=== PATIENT | male | born 1935 | race Caucasian/White ===

== ENCOUNTER 2020-04-20 17:01 | Inpatient (IN) | payer MEDICARE, OTHER ==
[2020-04-20] MEDS ORDERED: ALOE VERA TOP PRN (21:11)
[2020-04-20] MEDS ORDERED: Polyethylene Glycol OPTH DROP 15 ML BOT EA EYE PRN (21:13)
[2020-04-20] MEDS ORDERED: TYLENOL PO PRN (21:18)
[2020-04-20] MEDS: Melatonin 3 MG TAB PO PRN (21:32)
[2020-04-20] MEDS: Tamsulosin HCl 0.4 MG CAP PO SCH (21:32)
[2020-04-20] MEDS: Benzonatate 100 MG CAP PO PRN (21:32)
[2020-04-20] MEDS: Latanoprost 0.005% Ophth Soln 2.5 ml Bottle EA EYE SCH (21:33)
[2020-04-20] MEDS: guaiFENesin ER 600 MG TAB PO SCH (21:33)
[2020-04-20] MEDS: Metoprolol Tartrate 25 MG TAB PO SCH (21:33)
[2020-04-20] MEDS: Gabapentin 300 MG CAP PO SCH (21:33)
[2020-04-20] MEDS: Nystatin 500,000 UNITS/5 ML UDCUP SSW SCH (21:33)
[2020-04-20] MEDS: Niacin SR 500 MG CAP PO SCH (21:33)
[2020-04-21] MEDS ORDERED: Acetaminophen 325 MG TAB PO PRN (02:23)
[2020-04-21 05:41] LABS: #Lymphocytes 1.9 thou/uL (1.20-3.40); #Monocytes 0.8 thou/uL (0.11-0.59); #Neutrophils 10.6 thou/uL (1.40-6.50); %Basophils 0.3 % (0.0-1.0); %Eosinophils 0.2 % (0.0-10.0); %Monocytes 6.1 % (0.0-10.0); %Neutrophils 79.4 % (42.0-75.0); Mean Corpuscular HGB CONC 32.2 g/dL (32.0-36.0); Mean Corpuscular Hemoglobin 29.6 pg (27.0-31.0); Mean Corpuscular Volume 91.8 fL (78.0-98.0); Platelet Count 273 thou/uL (130-400); RBC Distribution Width 11.7 % (11.5-14.5); Red Blood Cell (RBC) Count 4.41 mill/uL (4.70-6.10); White Blood Cell (WBC) Count 13.4 thou/uL (4.8-10.8)
[2020-04-21 05:59] LABS: ALT (SGPT) 75 U/L (8-55); AST (SGOT) 39 U/L (5-34); Alkaline Phosphatase 67 U/L (40-110); Anion Gap 17 mmol/L (10-20); BUN (Urea Nitrogen) 25 mg/dL (8.4-25.7); Bilirubin, Total 0.7 mg/dL (0.2-1.2); Calc. Creatinine Clearance 60 mL/min (70-130); Calcium 8.8 mg/dL (7.8-10.44); Carbon Dioxide 22 mmol/L (23-31); Chloride 103 mmol/L (98-107); Estimated GFR-MDRD 64; Globulin 3.1 g/dL (2.4-3.5); Glucose 109 mg/dL (83-110); Potassium 4.6 mmol/L (3.5-5.1); Protein, Total 6.1 g/dL (5.8-8.1); Sodium 137 mmol/L (136-145)
[2020-04-21] MEDS ORDERED: Potassium Chloride 20 MEQ TAB PO SCH (09:00)
[2020-04-21] MEDS: Finasteride 5 MG TAB PO SCH (09:02)
[2020-04-21] MEDS: Calcium Carbonate 600 MG + Vit D TAB PO SCH (09:02)
[2020-04-21] MEDS: Atorvastatin Calcium 40 MG TAB PO SCH (09:02)
[2020-04-21] MEDS: Amoxicillin/Potassium Clav 875 MG TAB PO SCH ×2 (09:02→20:27)
[2020-04-21] MEDS: Metoprolol Tartrate 25 MG TAB PO SCH ×2 (09:02→20:26)
[2020-04-21] MEDS: Enoxaparin Sodium 40 MG/0.4 ML SYRINGE SC SCH (09:03)
[2020-04-21] MEDS: Fish Oil 1,000 MG CAP PO SCH (09:03)
[2020-04-21] MEDS: predniSONE 20 MG TAB PO SCH (09:03)
[2020-04-21] MEDS: Nystatin 500,000 UNITS/5 ML UDCUP SSW SCH ×4 (09:03→20:26)
[2020-04-21] MEDS: guaiFENesin ER 600 MG TAB PO SCH ×2 (09:03→20:26)
[2020-04-21] MEDS: Floranex Packet PO SCH (09:03)
[2020-04-21] MEDS: Furosemide 20 MG TAB PO SCH (09:03)
[2020-04-21] MEDS: Aspirin Chewable 81 MG TAB PO SCH (09:03)
[2020-04-21] MEDS: GARLIC PO SCH (09:04)
[2020-04-21] MEDS: OSTEO BI FLEX PO SCH (09:05)
[2020-04-21] MEDS: [UNRECOGNIZED DRUG - OTHER] PO SCH (09:05)
--- NOTE | 2020-04-21 18:02 | HP ---
He admitted to [facility] on the evening of 04/20/2020. CHIEF COMPLAINT: Weakness following hospitalization for aspiration pneumonia. HISTORY OF PRESENT ILLNESS: The patient is an 84-year-old white male, who has a history of hypertension, coronary artery disease, hypertrophic obstructive cardiomyopathy, and syncope with sinus pause, for which he has undergone an ICD placement. He also has a history of chronic low back pain from spinal stenosis and failed surgical back syndrome. The patient is a . He lives by himself and is independent of all his ADLs and instrumental ADLs. The patient was hospitalized at [facility] in [place] from 04/02/2020 until 04/20/2020. He had entered the hospital for placement of a nerve stimulator in his low back to help control his chronic pain. While there, he vomited in his O2 mask and aspirated and developed respiratory failure. He had developed an aspiration pneumonia and that gradually improved. He has required supplemental O2, antibiotics, and recently with the addition of antibiotics, neb treatments, and chest percussion. He has done much better. He has been able to maintain his good O2 saturation with just 3 L of oxygen by nasal cannula. He has felt better and has been up walking some. The patient entered the hospital late on the evening of 04/20 and was seen early on the morning of 04/21. The patient was able to relay the history of why he went to the hospital and what has happened to him. He said he is feeling better, just still weak and not back to his baseline, still has a little productive cough. He has been able to walk some. PAST MEDICAL HISTORY: Hospitalized at [facility] from 04/02/2020 to 04/20/2020 for placement of a nerve stimulator in his low back, but procedure could not be done due to an aspiration requiring hospitalization for aspiration pneumonia with hypoxic respiratory failure. The patient has coronary artery disease. He sees Dr. Whitehead, music researcher. He has had stents. He has had rotational atherotomy and 2 stents in proximal LAD. He has hypertrophic obstructive cardiomyopathy. He has had sinus pause with syncope. He has an automatic implantable defibrillator. He has GERD that is controlled, hyperlipidemia, hypertension. The patient has spinal stenosis. He has a multiple laminectomies and has a post laminectomy syndrome, atrial fibrillation and aspiration pneumonia with sepsis. The patient has had cataract extractions and intraocular lens implants, bilateral carpal tunnel release, cholecystectomy, ERCP with sphincterotomy, hemorrhoid surgery, previous placement of nerve stimulator, right total knee replacement, lumbar laminectomy at L4-L5, tonsillectomy, right total hip arthroplasty, vasectomy. PRESENT MEDICINES: 1. Acetaminophen 650 mg every 6 hours. 2. Acidophilus 1 gram daily. 3. Albuterol (DuoNeb) every 6 hours as needed. 4. Aloe vera topical oil, apply as needed. 5. Augmentin 875 mg for a total of 10 days. 6. Aspirin 81 mg daily. 7. Atorvastatin 40 mg daily. 8. Tessalon 200 mg t.i.d. as needed. 9. Caltrate D 600 mg 200 mg one daily. 10. Lovenox 40 mg daily. 11. Proscar 5 mg daily. 12. Fish oil 1000 mg daily. 13. Furosemide 20 mg daily. 14. Gabapentin 600 mg at bedtime. 15. Garlic one daily. 16. Mucinex 600 mg b.i.d. 17. Icaps one daily. 18. Xalatan 0.005% one drop in the eyes at bedtime. 19. Melatonin 6 mg at bedtime as needed. 20. Metoprolol tartrate 25 mg b.i.d. 21. Niacin 500 mg at bedtime. 22. Nystatin 500 mg to swish and swallow q.i.d. 23. Osteo Bi-Flex one daily. 24. Pantoprazole 40 mg daily. 25. Potassium chloride 20 mEq daily. 26. Prednisone 20 mg daily. 27. Systane ophthalmic drops one drop in the eyes p.r.n. for dryness. 28. Tamsulosin 0.4 mg at bedtime. 29. Tramadol 50 mg every 8 hours as needed. ALLERGIES: NO KNOWN ALLERGIES. REVIEW OF SYSTEMS: GENERAL: The patient said he does not think he has had any fever. He thinks his weight has been stable. HEENT: Eyes; the patient said his vision is good. Ear, nose, and throat; I thinks his ears may be stopped up with wax. CARDIOVASCULAR: No chest pain. PULMONARY: The patient said he is breathing a lot better. He still has a little productive cough, but this is improving. GI: Appetite good. No nausea or vomiting. Bowels are moving good. : No trouble urinating. MUSCULOSKELETAL: The patient has chronic low back pain. DERMATOLOGIC: No complaint. NEUROLOGIC: No complaint. ADLs: Prior to hospitalization, the patient was independent of all his ADLs and instrumental ADLs. HABITS: Tobacco, none. Alcohol, the patient will occasionally have a drink. SOCIAL HISTORY: The patient is a , lives alone, independent. Continues to drive. CODE STATUS: Full code. PHYSICAL EXAMINATION: GENERAL: Shows an 84-year-old white male, who is sitting up in a [place] chair. He is alert, talkative and appears in no acute distress. He has occasional little productive of some clear mucus. VITAL SIGNS: His vital signs show temperature 98.2, pulse 70, respirations 20, O2 saturation 95% on 3 L by nasal cannula, and blood pressure 142/81. His weight is 189. His height is 5 feet 10 inches. HEENT: Normocephalic. Eyes; pupils are equal, round, and reactive. Bilateral intraocular implants. Ears, both ears have cerumen obscuring the TM. Nose; normal. Mouth and throat; normal. Tongue was a little reddish. NECK: Carotids are equal and strong. No bruits. LUNGS: The patient has some good breath sounds with some mild rhonchi on expiration. There is some just very minimal wheeze at the posterior bases. HEART: The patient has a regular rate with a grade 3/6 blowing systolic murmur heard best at the apex, but also along the left sternal border. CHEST: The patient has an ICD located in the right upper anterior chest. ABDOMEN: Soft with no organomegaly. No areas of tenderness. SKIN: No rash. EXTREMITIES: Lower extremities, there is trace edema. NEUROLOGIC: The patient is alert and oriented x3, and understands the situation. In taking his history he did have a little trouble remembering all his health issues and previous surgeries. The patient has some generalized weakness that is nonfocal. IMPRESSION: 1. Generalized weakness and deconditioning. a. Following a hospitalization at [facility] from 04/02 to 04/20 for aspiration pneumonia complicated by hypoxic respiratory failure and episode of atrial fibrillation that was new onset with the rates controlled and managed with Lopressor and aspirin. b. Improving. 2. Aspiration pneumonia. a. Occurred when he was being prepared for a nerve stimulator in his low back and resulted in vomiting and aspiration. b. Complicated by hypoxic respiratory failure, requiring supplemental O2. c. Improving, finishing a 10-day course of Augmentin. 3. New onset atrial fibrillation. a. Rate controlled with regular rate, on aspirin. No anticoagulation. 4. Hypertension. 5. Coronary artery disease. a. Status post stents. b. Presently asymptomatic. 6. He has an ICD. a. Placed for sinus pause with syncope. 7. Hyperlipidemia. 8. Chronic low back pain. a. Secondary to spinal stenosis with history of laminectomy and leaving him with a post-laminectomy syndrome. PLAN: The patient has been admitted to [facility] for purpose of physical therapy and occupational therapy. His goals are to return to his home. We will complete the 10-day course of Augmentin, which should end on 04/23, his prednisone is scheduled to end on 04/24. We will continue his routine medicines. We will place MATT hose on him, which I think will help with his mild edema in the lower legs. Code status is full. See orders. Job ID: [id number] MTDD
[2020-04-21] MEDS: Latanoprost 0.005% Ophth Soln 2.5 ml Bottle EA EYE SCH (20:25)
[2020-04-21] MEDS: Gabapentin 300 MG CAP PO SCH (20:26)
[2020-04-21] MEDS: Niacin SR 500 MG CAP PO SCH (20:26)
[2020-04-21] MEDS: Tamsulosin HCl 0.4 MG CAP PO SCH (20:26)
[2020-04-21] MEDS: Melatonin 3 MG TAB PO PRN (22:22)
[2020-04-22] MEDS: Metoprolol Tartrate 25 MG TAB PO SCH ×2 (08:40→22:08)
[2020-04-22] MEDS: Nystatin 500,000 UNITS/5 ML UDCUP SSW SCH ×4 (08:40→22:09)
[2020-04-22] MEDS: Floranex Packet PO SCH (08:40)
[2020-04-22] MEDS: Furosemide 20 MG TAB PO SCH (08:41)
[2020-04-22] MEDS: Fish Oil 1,000 MG CAP PO SCH (08:41)
[2020-04-22] MEDS: Amoxicillin/Potassium Clav 875 MG TAB PO SCH ×2 (08:41→22:07)
[2020-04-22] MEDS: guaiFENesin ER 600 MG TAB PO SCH ×2 (08:41→22:08)
[2020-04-22] MEDS: Aspirin Chewable 81 MG TAB PO SCH (08:41)
[2020-04-22] MEDS: Calcium Carbonate 600 MG + Vit D TAB PO SCH (08:41)
[2020-04-22] MEDS: predniSONE 20 MG TAB PO SCH (08:41)
[2020-04-22] MEDS: Atorvastatin Calcium 40 MG TAB PO SCH (08:41)
[2020-04-22] MEDS: Finasteride 5 MG TAB PO SCH (08:41)
[2020-04-22] MEDS: Enoxaparin Sodium 40 MG/0.4 ML SYRINGE SC SCH (09:01)
[2020-04-22] MEDS: traMADol HCl 50 MG TAB PO PRN (09:59)
[2020-04-22] MEDS: GARLIC PO SCH (10:23)
[2020-04-22] MEDS: [UNRECOGNIZED DRUG - OTHER] PO SCH (10:24)
[2020-04-22] MEDS: OSTEO BI FLEX PO SCH (10:24)
--- NOTE | 2020-04-22 14:05 | PRG ---
DATE OF SERVICE: 04/22/2020 SUBJECTIVE: The patient is up in the Physical Therapy room working on a NuStep. He has his oxygen on and mask on. The patient said he is just very nervous. The patient said he ordinarily is not like this. He said that he is not used to the oxygen. He is just anxious all the time. He still complains of trouble with his sleep. He also says he is peeing all the time. He is wearing his MATT hose. OBJECTIVE: GENERAL: The patient is sitting up on a NuStep working his hands and legs. He is mildly dyspneic with activities, but not in any acute distress. VITAL SIGNS: His temperature is 97.4, pulse 94, respirations are 20, O2 saturation varies. It has been 97% on 3 L. This morning, they had a reading of 87. His blood pressure was 85/62. LUNGS: Clear. HEART: Regular rate with a blowing systolic murmur heard over the apex. He does have edema over the ankles, but it is little less than yesterday. ASSESSMENT: 1. Generalized weakness and deconditioning: a. Following a hospitalization at [facility] from through 04/20 for aspiration pneumonia complicated by hypoxic respiratory failure and episode of atrial fibrillation that was a new onset, for which the rate has been controlled and managed with Lopressor and aspirin. b. Improving. 2. Aspiration pneumonia occurred when he was being prepared for nerve stimulator and resulted in vomiting and aspiration. a. Complicated by hypoxic respiratory failure requiring supplemental O2. b. Improving, finishing a 10-day course of Augmentin. c. Still requires supplemental O2. 3. New onset of atrial fibrillation. a. Rate controlled. Presently in regular rate and on aspirin and Lopressor. 4. Hypertension. a. Pressure now is running low as of 04/22. 5. Coronary artery disease. a. Status post stents. b. Presently asymptomatic. 6. Has an ICD. a. Placed when patient had syncopal spells and sinus pauses. 7. Hyperlipidemia. 8. Chronic low back pain. a. Secondary to spinal stenosis with a history of laminectomy and has been left with a postlaminectomy syndrome. 9. Depression and anxiety. PLAN: We will continue PT and OT. Continue supplemental O2. We will try patient on mirtazapine 15 mg at nighttime to see if this will help him with his sleep and also with anxiety and depression. Job ID: [id number] MTDD
[2020-04-22] MEDS: Mirtazapine 15 MG TAB PO SCH (22:08)
[2020-04-22] MEDS: Gabapentin 300 MG CAP PO SCH (22:08)
[2020-04-22] MEDS: Melatonin 3 MG TAB PO PRN (22:09)
[2020-04-22] MEDS: Niacin SR 500 MG CAP PO SCH (22:09)
[2020-04-22] MEDS: Tamsulosin HCl 0.4 MG CAP PO SCH (22:09)
[2020-04-22] MEDS: Latanoprost 0.005% Ophth Soln 2.5 ml Bottle EA EYE SCH (22:17)
[2020-04-23 06:21] LABS: #Basophils 0.1 thou/uL (0.0-0.2); #Lymphocytes 2.2 thou/uL (1.20-3.40); #Monocytes 0.8 thou/uL (0.11-0.59); %Basophils 0.6 % (0.0-1.0); %Eosinophils 0.3 % (0.0-10.0); %Monocytes 6.8 % (0.0-10.0); %Neutrophils 74.3 % (42.0-75.0); Mean Corpuscular HGB CONC 30.7 g/dL (32.0-36.0); Mean Corpuscular Hemoglobin 28.9 pg (27.0-31.0); Mean Platelet Volume 7.6 fL (7.4-10.4); Platelet Count 329 thou/uL (130-400); RBC Distribution Width 11.6 % (11.5-14.5); Red Blood Cell (RBC) Count 4.51 mill/uL (4.70-6.10); White Blood Cell (WBC) Count 12.2 thou/uL (4.8-10.8)
[2020-04-23 06:25] LABS: Anion Gap 14 mmol/L (10-20); BUN (Urea Nitrogen) 28 mg/dL (8.4-25.7); Calc. Creatinine Clearance 55 mL/min (70-130); Calcium 9.2 mg/dL (7.8-10.44); Carbon Dioxide 24 mmol/L (23-31); Chloride 105 mmol/L (98-107); Estimated GFR-MDRD 58; Glucose 105 mg/dL (83-110); Potassium 4.7 mmol/L (3.5-5.1); Sodium 138 mmol/L (136-145)
[2020-04-23] MEDS: Fish Oil 1,000 MG CAP PO SCH (09:20)
[2020-04-23] MEDS: Calcium Carbonate 600 MG + Vit D TAB PO SCH (09:20)
[2020-04-23] MEDS: Amoxicillin/Potassium Clav 875 MG TAB PO SCH ×2 (09:20→21:48)
[2020-04-23] MEDS: Floranex Packet PO SCH (09:20)
[2020-04-23] MEDS: predniSONE 20 MG TAB PO SCH (09:20)
[2020-04-23] MEDS: guaiFENesin ER 600 MG TAB PO SCH ×2 (09:21→21:48)
[2020-04-23] MEDS: Finasteride 5 MG TAB PO SCH (09:21)
[2020-04-23] MEDS: Furosemide 20 MG TAB PO SCH (09:21)
[2020-04-23] MEDS: Enoxaparin Sodium 40 MG/0.4 ML SYRINGE SC SCH (09:21)
[2020-04-23] MEDS: Atorvastatin Calcium 40 MG TAB PO SCH (09:21)
[2020-04-23] MEDS: Aspirin Chewable 81 MG TAB PO SCH (09:21)
[2020-04-23] MEDS: Nystatin 500,000 UNITS/5 ML UDCUP SSW SCH ×4 (09:21→21:49)
[2020-04-23] MEDS: [UNRECOGNIZED DRUG - OTHER] PO SCH (09:22)
[2020-04-23] MEDS: GARLIC PO SCH (09:22)
[2020-04-23] MEDS: OSTEO BI FLEX PO SCH (09:23)
[2020-04-23] MEDS ORDERED: Metoprolol Tartrate 25 MG TAB PO SCH ×2 (10:37→11:00)
[2020-04-23] MEDS: Metoprolol Tartrate 25 MG TAB PO SCH ×2 (10:49→21:49)
--- NOTE | 2020-04-23 14:24 | PRG ---
DATE OF SERVICE: 04/23/2020 SUBJECTIVE: The patient said he slept a lot better last night. He said that that sense of nervousness has seemed to settle and seems to be a lot better. He is just a little more tired today. He has already been to physical therapy this morning. OBJECTIVE: GENERAL: The patient is sitting in a geriatric chair. He is alert, talkative, does not appear in any distress. VITAL SIGNS: His temperature is 97.8, pulse 64, respirations 20, O2 of 93% on 3 L, blood pressure was only 82/46. LUNGS: There are some rales at the right base, otherwise chest clear. HEART: Regular rate. EXTREMITIES: No edema. LABORATORY DATA: H and H of 13 and 42.4, white cell count 12,200 with 74% segs , 18% lymphocytes, and platelet count of 329. Sodium 138, potassium 4.7, BUN 28, creatinine 1.1, and GFR 58. ASSESSMENT: 1. Generalized weakness and deconditioning. a. Following a hospitalization at [facility] from through 04/20 for aspiration pneumonia, complicated by hypoxic respiratory failure, and episode of atrial fibrillation that was a new onset of which rate has been controlled and managed with Lopressor and aspirin. b. Improving. 2. Aspiration pneumonia, occurred when he was being prepared in preop for nerve stimulator placement and vomited and aspirated. a. Complicated by hypoxic respiratory failure, requiring supplemental O2. b. Improving, finishing 10-day course of Augmentin. c. Still requires supplemental O2. 3. Episode of atrial fibrillation during recent hospitalization, that was new onset. a. Rate controlled, presently regular rhythm. 4. Hypertension. a. Pressure is still running low as of 04/23. 5. Coronary artery disease. a. Status post stent. b. Presently asymptomatic. 6. Status post ICD placement. a. History of syncopal spells with sinus pauses. 7. Hyperlipidemia. 8. Chronic low back pain. a. Secondary to spinal stenosis with a history of laminectomy that has been complicated by post-laminectomy syndrome. 9. Depression and anxiety. a. Improved. PLAN: The patient's blood pressure is still running a little low, pulses in the 60s and rate is regular. We will cut his Lopressor to 12.5 b.i.d. We will try holding the furosemide and watch if there is any fluid accumulation. Prior to hospitalization, he was not on any diuretics. Continue PT and OT. Job ID: [id number] MTDD
[2020-04-23] MEDS: traMADol HCl 50 MG TAB PO PRN (14:29)
[2020-04-23] MEDS: Gabapentin 300 MG CAP PO SCH (21:48)
[2020-04-23] MEDS: Latanoprost 0.005% Ophth Soln 2.5 ml Bottle EA EYE SCH (21:48)
[2020-04-23] MEDS: Melatonin 3 MG TAB PO PRN (21:49)
[2020-04-23] MEDS: Niacin SR 500 MG CAP PO SCH (21:49)
[2020-04-23] MEDS: Mirtazapine 15 MG TAB PO SCH (21:49)
[2020-04-23] MEDS: Tamsulosin HCl 0.4 MG CAP PO SCH (21:49)
[2020-04-24] MEDS: Metoprolol Tartrate 25 MG TAB PO SCH ×3 (09:12→22:00)
[2020-04-24] MEDS: Floranex Packet PO SCH (09:12)
[2020-04-24] MEDS: Nystatin 500,000 UNITS/5 ML UDCUP SSW SCH ×4 (09:12→21:59)
[2020-04-24] MEDS: Atorvastatin Calcium 40 MG TAB PO SCH (09:12)
[2020-04-24] MEDS: Finasteride 5 MG TAB PO SCH (09:12)
[2020-04-24] MEDS: [UNRECOGNIZED DRUG - OTHER] PO SCH (09:13)
[2020-04-24] MEDS: Aspirin Chewable 81 MG TAB PO SCH (09:13)
[2020-04-24] MEDS: Fish Oil 1,000 MG CAP PO SCH (09:13)
[2020-04-24] MEDS: guaiFENesin ER 600 MG TAB PO SCH ×2 (09:13→22:00)
[2020-04-24] MEDS: OSTEO BI FLEX PO SCH (09:13)
[2020-04-24] MEDS: Enoxaparin Sodium 40 MG/0.4 ML SYRINGE SC SCH (09:13)
[2020-04-24] MEDS: predniSONE 20 MG TAB PO SCH (09:13)
[2020-04-24] MEDS: Calcium Carbonate 600 MG + Vit D TAB PO SCH (09:13)
[2020-04-24] MEDS: GARLIC PO SCH (09:14)
[2020-04-24] MEDS: traMADol HCl 50 MG TAB PO PRN (15:13)
[2020-04-24] MEDS: Gabapentin 300 MG CAP PO SCH (21:59)
[2020-04-24] MEDS: Niacin SR 500 MG CAP PO SCH (21:59)
[2020-04-24] MEDS: Mirtazapine 15 MG TAB PO SCH (22:00)
[2020-04-24] MEDS: Tamsulosin HCl 0.4 MG CAP PO SCH (22:00)
[2020-04-24] MEDS: Latanoprost 0.005% Ophth Soln 2.5 ml Bottle EA EYE SCH (22:00)
[2020-04-25 05:44] LABS: #Basophils 0.1 thou/uL (0.0-0.2); #Eosinphils 0.1 thou/uL (0.0-0.7); #Monocytes 0.8 thou/uL (0.11-0.59); #Neutrophils 8.8 thou/uL (1.40-6.50); %Basophils 0.5 % (0.0-1.0); %Eosinophils 0.4 % (0.0-10.0); %Lymphocytes 23.3 % (21.0-51.0); %Monocytes 6.6 % (0.0-10.0); %Neutrophils 69.2 % (42.0-75.0); Hemoglobin 12.8 g/dL (14.0-18.0); Mean Corpuscular Hemoglobin 29.1 pg (27.0-31.0); Mean Corpuscular Volume 93.9 fL (78.0-98.0); Mean Platelet Volume 7.2 fL (7.4-10.4); Platelet Count 337 thou/uL (130-400); RBC Distribution Width 11.9 % (11.5-14.5); White Blood Cell (WBC) Count 12.7 thou/uL (4.8-10.8)
[2020-04-25 05:58] LABS: ALT (SGPT) 74 U/L (8-55); AST (SGOT) 34 U/L (5-34); Albumin 2.9 g/dL (3.4-4.8); Alkaline Phosphatase 64 U/L (40-110); Anion Gap 15 mmol/L (10-20); BUN (Urea Nitrogen) 35 mg/dL (8.4-25.7); Bilirubin, Total 0.4 mg/dL (0.2-1.2); Calc. Creatinine Clearance 56 mL/min (70-130); Calcium 8.6 mg/dL (7.8-10.44); Carbon Dioxide 23 mmol/L (23-31); Chloride 106 mmol/L (98-107); Estimated GFR-MDRD 59; Globulin 3.2 g/dL (2.4-3.5); Glucose 101 mg/dL (83-110); Potassium 4.7 mmol/L (3.5-5.1); Protein, Total 6.1 g/dL (5.8-8.1); Sodium 139 mmol/L (136-145)
[2020-04-25] MEDS: Enoxaparin Sodium 40 MG/0.4 ML SYRINGE SC SCH (09:12)
[2020-04-25] MEDS: Finasteride 5 MG TAB PO SCH (09:13)
[2020-04-25] MEDS: Calcium Carbonate 600 MG + Vit D TAB PO SCH (09:13)
[2020-04-25] MEDS: Nystatin 500,000 UNITS/5 ML UDCUP SSW SCH ×4 (09:13→21:28)
[2020-04-25] MEDS: Floranex Packet PO SCH (09:13)
[2020-04-25] MEDS: Fish Oil 1,000 MG CAP PO SCH (09:13)
[2020-04-25] MEDS: Metoprolol Tartrate 25 MG TAB PO SCH ×2 (09:14→21:28)
[2020-04-25] MEDS: Atorvastatin Calcium 40 MG TAB PO SCH (09:14)
[2020-04-25] MEDS: guaiFENesin ER 600 MG TAB PO SCH ×2 (09:14→21:27)
[2020-04-25] MEDS: [UNRECOGNIZED DRUG - OTHER] PO SCH (09:15)
[2020-04-25] MEDS: Aspirin Chewable 81 MG TAB PO SCH (09:15)
[2020-04-25] MEDS: OSTEO BI FLEX PO SCH (09:16)
[2020-04-25] MEDS: Benzonatate 100 MG CAP PO PRN ×2 (09:20→23:12)
[2020-04-25] MEDS: GARLIC PO SCH (09:23)
[2020-04-25] MEDS: traMADol HCl 50 MG TAB PO PRN ×2 (14:37→23:09)
--- NOTE | 2020-04-25 16:02 | PRG ---
DATE OF SERVICE: 04/25/2020 SUBJECTIVE: The patient said he is feeling a lot better today. Yesterday, he was just tired and was achy. He was given tramadol, which helped. He said he had an excellent night sleep and this morning his breathing is better and everything seems better. OBJECTIVE: GENERAL: The patient is sitting up in his bed and smiling. He has just completely finished all his breakfast. He appears in no distress. VITAL SIGNS: Show a temperature 97.6, pulse 89, respirations 20, O2 saturation 93% on room air. Morning blood pressure pending. LUNGS: Clear. HEART: Regular rate. LABORATORY DATA: Lab shows an H and H of 12.8 and 41.4, white cell count 12,400 with 69% segs, 23% lymphocytes, platelet count of 337. Sodium 139, potassium 4.7, BUN 35, creatinine 1.17. GFR stable at 59. ALT stable at 74. ASSESSMENT: 1. Generalized weakness and deconditioning. a. Following a hospitalization at [facility] from through 04/20 for aspiration pneumonia complicated by hypoxic respiratory failure and episode of atrial fibrillation that was new onset, for which rate has been controlled and managed with Lopressor and aspirin. b. Improving. 2. Aspiration pneumonia occurred from a vomiting spell during preop for nerve stimulation placement. a. Complicated by hypoxic respiratory failure requiring supplemental O2. b. Improving. c. Still requiring supplemental O2. 3. Episode of atrial fibrillation during hospitalization that was a new onset. a. Rate controlled, presently regular rhythm. 4. Hypertension. a. Pressures are still running low, but the patient asymptomatic as of . 5. Coronary artery disease. a. Status post stent. b. Presently asymptomatic. 6. Status post ICD placement. a. History of syncopal spells and sinus pause. 7. Hyperlipidemia. 8. Chronic low back pain. a. Secondary to spinal stenosis with a history of laminectomy that has been complicated by post-laminectomy syndrome. 9. Depression and anxiety. a. Improved. PLAN: The patient looks much better today. We will continue present care. Continue PT and OT. Job ID: [id number] MTDD
[2020-04-25] MEDS: Gabapentin 300 MG CAP PO SCH (21:27)
[2020-04-25] MEDS: Niacin SR 500 MG CAP PO SCH (21:28)
[2020-04-25] MEDS: Latanoprost 0.005% Ophth Soln 2.5 ml Bottle EA EYE SCH (21:28)
[2020-04-25] MEDS: Mirtazapine 15 MG TAB PO SCH (21:28)
[2020-04-25] MEDS: Tamsulosin HCl 0.4 MG CAP PO SCH (21:29)
[2020-04-25] MEDS: Melatonin 3 MG TAB PO PRN (21:29)
[2020-04-26] MEDS: Nystatin 500,000 UNITS/5 ML UDCUP SSW SCH ×4 (08:35→20:36)
[2020-04-26] MEDS: Floranex Packet PO SCH (08:35)
[2020-04-26] MEDS: Enoxaparin Sodium 40 MG/0.4 ML SYRINGE SC SCH (08:35)
[2020-04-26] MEDS: Calcium Carbonate 600 MG + Vit D TAB PO SCH (08:35)
[2020-04-26] MEDS: Finasteride 5 MG TAB PO SCH (08:35)
[2020-04-26] MEDS: Aspirin Chewable 81 MG TAB PO SCH (08:35)
[2020-04-26] MEDS: guaiFENesin ER 600 MG TAB PO SCH ×2 (08:36→20:37)
[2020-04-26] MEDS: Fish Oil 1,000 MG CAP PO SCH (08:36)
[2020-04-26] MEDS: Atorvastatin Calcium 40 MG TAB PO SCH (08:36)
[2020-04-26] MEDS: Metoprolol Tartrate 25 MG TAB PO SCH ×2 (08:37→20:38)
[2020-04-26] MEDS: GARLIC PO SCH (09:16)
[2020-04-26] MEDS: [UNRECOGNIZED DRUG - OTHER] PO SCH (09:16)
[2020-04-26] MEDS: OSTEO BI FLEX PO SCH (09:17)
--- NOTE | 2020-04-26 10:04 | PRG ---
DATE OF SERVICE: 04/26/2020 SUBJECTIVE: The patient says he does not feel very well. He is just kind of achy. Did not rest last night says again the achiness. He did have a little shortness of breath yesterday that was relieved by the nebulizer. OBJECTIVE: GENERAL: The patient is lying in bed and complaining of just not feeling well. He does not appear in any acute distress. VITAL SIGNS: His temperature is 97.6, pulse 81, respirations 18, O2 saturation 95% on 2 L, blood pressure 86/54. Yesterday, pressure was 113/70. LUNGS: There are good breath sounds with some expiratory rhonchi and slight wheeze. HEART: Regular rate. EXTREMITIES: No edema. ASSESSMENT: 1. Generalized weakness and deconditioning. a. Following a hospitalization at [facility] from through 04/20 for aspiration pneumonia complicated by hypoxic respiratory failure and episode of atrial fibrillation that was new onset, for which the rate has been controlled and managed with Lopressor and aspirin. b. Improving. 2. Aspiration pneumonia occurred from vomiting during preop for nerve stimulation placement in his back. a. Complicated by hypoxic respiratory failure, requiring supplemental O2. b. Improving. c. Still requiring supplemental O2. 3. Episode of atrial fibrillation during hospitalization that was a new onset. a. Rate controlled. Presently has a regular rhythm. 4. Hypertension. a. Pressures are still running low, but the patient is asymptomatic as of , and on no antihypertensive, except for low dose of metoprolol. 5. Coronary artery disease. a. Status post stents. b. Presently asymptomatic. 6. Status post implantable cardioverter-defibrillator placement. a. History of syncopal spells with sinus pause. 7. Chronic low back pain. a. Secondary to spinal stenosis with history of laminectomy, that has been complicated by postlaminectomy syndrome. 8. Depression and anxiety. a. Stable as of 04/26. PLAN: Continue present care. Continue PT and OT. We will give the patient neb treatments regularly three times a day and every 4 hours, if needed. Continue incentive spirometry. We will try a Gaymar pump to his low back for comfort as needed. Job ID: [id number] [facility]
[2020-04-26] MEDS: traMADol HCl 50 MG TAB PO PRN (20:35)
[2020-04-26] MEDS: Melatonin 3 MG TAB PO PRN (20:36)
[2020-04-26] MEDS: Mirtazapine 15 MG TAB PO SCH (20:37)
[2020-04-26] MEDS: Niacin SR 500 MG CAP PO SCH (20:37)
[2020-04-26] MEDS: Tamsulosin HCl 0.4 MG CAP PO SCH (20:37)
[2020-04-26] MEDS: Latanoprost 0.005% Ophth Soln 2.5 ml Bottle EA EYE SCH (20:40)
[2020-04-26] MEDS: Gabapentin 300 MG CAP PO SCH (20:40)
[2020-04-27] MEDS: Calcium Carbonate 600 MG + Vit D TAB PO SCH (08:57)
[2020-04-27] MEDS: guaiFENesin ER 600 MG TAB PO SCH ×2 (08:57→20:41)
[2020-04-27] MEDS: Enoxaparin Sodium 40 MG/0.4 ML SYRINGE SC SCH (08:57)
[2020-04-27] MEDS: Finasteride 5 MG TAB PO SCH (08:57)
[2020-04-27] MEDS: Metoprolol Tartrate 25 MG TAB PO SCH ×2 (08:57→20:41)
[2020-04-27] MEDS: Floranex Packet PO SCH (08:57)
[2020-04-27] MEDS: Fish Oil 1,000 MG CAP PO SCH (08:57)
[2020-04-27] MEDS: Aspirin Chewable 81 MG TAB PO SCH (08:57)
[2020-04-27] MEDS: Nystatin 500,000 UNITS/5 ML UDCUP SSW SCH ×4 (08:57→20:41)
[2020-04-27] MEDS: Atorvastatin Calcium 40 MG TAB PO SCH (08:57)
[2020-04-27] MEDS: GARLIC PO SCH (08:58)
[2020-04-27] MEDS: OSTEO BI FLEX PO SCH (08:58)
[2020-04-27] MEDS: [UNRECOGNIZED DRUG - OTHER] PO SCH (08:58)
--- NOTE | 2020-04-27 11:35 | PRG ---
DATE OF SERVICE: 04/27/2020 SUBJECTIVE: The patient said that he feels a lot better today. His breathing is doing better. He said that he slept very good last night. OBJECTIVE: GENERAL: The patient is sitting up in bed. He looks better. He appears in no distress. VITAL SIGNS: His temperature is 97.3, pulse 84, respirations 20, O2 saturation 94% on 3 L, blood pressure 94/63. LUNGS: Clear except for some mild expiratory wheeze. Still has a little slight cough. HEART: Regular rate. EXTREMITIES: There is trace edema. ASSESSMENT: 1. Generalized weakness and deconditioning. a. Following hospitalization at [facility] from 04/02 through 04/20 for aspiration pneumonia complicated by hypoxic respiratory failure and episode of atrial fibrillation that was a new onset for which the rate has been controlled and managed with Lopressor and aspirin. b. Improving. 2. Aspiration pneumonia occurred from vomiting during preop for nerve stimulation placement in his back. a. Complicated by hypoxic respiratory failure requiring supplemental O2. b. Improving. c. Still requiring supplemental O2. 3. Episode of atrial fibrillation during hospitalization that was new onset. a. Rate controlled. 4. Hypertension. a. Pressures still run low. He is not on any antihypertensives except for the low-dose metoprolol. 5. Coronary artery disease. a. Status post stents. b. Presently asymptomatic. 6. Status post implantable cardioverter-defibrillator placement. a. History of syncopal spell with sinus pause. 7. Chronic low back pain. 8. Depression and anxiety. a. Improved as of 04/27. PLAN: Continue present care. Continue PT and OT. Job ID: [id number] [facility]
[2020-04-27] MEDS: Mirtazapine 15 MG TAB PO SCH (20:41)
[2020-04-27] MEDS: Niacin SR 500 MG CAP PO SCH (20:41)
[2020-04-27] MEDS: Tamsulosin HCl 0.4 MG CAP PO SCH (20:41)
[2020-04-27] MEDS: Gabapentin 300 MG CAP PO SCH (20:41)
[2020-04-27] MEDS: Latanoprost 0.005% Ophth Soln 2.5 ml Bottle EA EYE SCH (20:45)
[2020-04-28] MEDS: Enoxaparin Sodium 40 MG/0.4 ML SYRINGE SC SCH (08:28)
[2020-04-28] MEDS: Finasteride 5 MG TAB PO SCH (08:30)
[2020-04-28] MEDS: Atorvastatin Calcium 40 MG TAB PO SCH (08:30)
[2020-04-28] MEDS: Calcium Carbonate 600 MG + Vit D TAB PO SCH (08:30)
[2020-04-28] MEDS: Fish Oil 1,000 MG CAP PO SCH (08:30)
[2020-04-28] MEDS: Floranex Packet PO SCH (08:30)
[2020-04-28] MEDS: Nystatin 500,000 UNITS/5 ML UDCUP SSW SCH ×4 (08:30→21:37)
[2020-04-28] MEDS: Aspirin Chewable 81 MG TAB PO SCH (08:31)
[2020-04-28] MEDS: Metoprolol Tartrate 25 MG TAB PO SCH ×2 (08:31→21:38)
[2020-04-28] MEDS: guaiFENesin ER 600 MG TAB PO SCH ×2 (08:31→21:37)
[2020-04-28] MEDS: [UNRECOGNIZED DRUG - OTHER] PO SCH (10:00)
[2020-04-28] MEDS: OSTEO BI FLEX PO SCH (10:00)
[2020-04-28] MEDS: GARLIC PO SCH (10:00)
[2020-04-28] MEDS: Mirtazapine 15 MG TAB PO SCH (21:37)
[2020-04-28] MEDS: Niacin SR 500 MG CAP PO SCH (21:37)
[2020-04-28] MEDS: Gabapentin 300 MG CAP PO SCH (21:38)
[2020-04-28] MEDS: Tamsulosin HCl 0.4 MG CAP PO SCH (21:38)
[2020-04-28] MEDS: Latanoprost 0.005% Ophth Soln 2.5 ml Bottle EA EYE SCH (21:39)
[2020-04-29] MEDS: Atorvastatin Calcium 40 MG TAB PO SCH (09:21)
[2020-04-29] MEDS: Floranex Packet PO SCH (09:21)
[2020-04-29] MEDS: Aspirin Chewable 81 MG TAB PO SCH (09:21)
[2020-04-29] MEDS: Calcium Carbonate 600 MG + Vit D TAB PO SCH (09:21)
[2020-04-29] MEDS: Fish Oil 1,000 MG CAP PO SCH (09:22)
[2020-04-29] MEDS: Finasteride 5 MG TAB PO SCH (09:22)
[2020-04-29] MEDS: guaiFENesin ER 600 MG TAB PO SCH ×2 (09:22→20:07)
[2020-04-29] MEDS: Enoxaparin Sodium 40 MG/0.4 ML SYRINGE SC SCH (09:22)
[2020-04-29] MEDS: Nystatin 500,000 UNITS/5 ML UDCUP SSW SCH ×4 (09:23→20:05)
[2020-04-29] MEDS: Metoprolol Tartrate 25 MG TAB PO SCH ×2 (09:23→20:07)
[2020-04-29] MEDS: [UNRECOGNIZED DRUG - OTHER] PO SCH (09:26)
[2020-04-29] MEDS: GARLIC PO SCH (09:26)
[2020-04-29] MEDS: OSTEO BI FLEX PO SCH (09:26)
[2020-04-29 13:44] VITALS: BMI 26.4
--- NOTE | 2020-04-29 15:06 | PRG ---
DATE OF SERVICE: 04/28/2020 SUBJECTIVE: The patient said he is feeling better. He had a good night sleep. He is working with Physical Therapy. OBJECTIVE: GENERAL: The patient is sitting up in bed, alert, appears comfortable, in no distress. VITAL SIGNS: Show a temperature of 97.8, pulse 87, respirations 16, O2 saturation 94% to 96% on 2 L, and blood pressure 94/68. LUNGS: Clear. HEART: Regular rate. EXTREMITIES: No edema. ASSESSMENT: 1. Generalized weakness and deconditioning. a. Following the hospitalization at [facility] from 04/02 through 04/20 for aspiration pneumonia complicated by hypoxic respiratory failure requiring supplemental O2 and episode of atrial fibrillation that was new onset, which rate has been controlled and managed with Lopressor and aspirin. b. Improving. 2. Aspiration pneumonia occurred from vomiting during preop for surgery for placement of nerve stimulator in his back. a. Complicated by hypoxic respiratory failure requiring supplemental O2. b. Continues to improve. c. Continues to require supplemental O2. 3. Episode of atrial fibrillation during hospitalization that was new onset. a. Rate controlled. 4. Hypertension. a. Pressures still on the low side and not on any antihypertensive, but this is asymptomatic. 5. Coronary artery disease. a. Status post stents. b. Presently asymptomatic. 6. Status post implantable cardioverter-defibrillator placement. a. History of syncope with sinus pause. 7. Chronic low back pain. 8. Depression and anxiety. a. Improved. PLAN: Continue present care. Continue PT and OT. Job ID: [id number] MTDD
--- NOTE | 2020-04-29 15:21 | PRG ---
DATE OF SERVICE: 04/29/2020 SUBJECTIVE: The patient said he is doing better. He is still coughing up just a little phlegm that is clear. He said he thinks he is a lot stronger. He has been working with Physical Therapy, and he is walking up to 75 feet with a rolling walker. He is transferring with just standby assistance. OBJECTIVE: GENERAL: The patient is sitting up in bed, alert, appears comfortable, and in no distress. VITAL SIGNS: His temperature is 97.9, pulse 99, respirations 18, O2 saturation 98% on 2 L, blood pressure was earlier at 93/60 and later was 86/58, but patient asymptomatic. LUNGS: Clear with no wheezes. HEART: Regular rate. EXTREMITIES: No edema. ASSESSMENT: 1. Generalized weakness and deconditioning. a. Following hospitalization at [facility] from 04/02 through 04/20, for aspiration pneumonia complicated by hypoxic respiratory failure and an episode of atrial fibrillation, that was new onset, for which the rate has been controlled and managed with Lopressor and aspirin. b. Improving. Walking up to 75 feet with a rolling walker. 2. Aspiration pneumonia, that occurred from vomiting during preop for surgery for placement of a nerve stimulator in his low back. a. Complicated by hypoxic respiratory failure requiring supplemental O2. b. Clinically, the aspiration pneumonia has resolved. c. Continues to require supplemental O2. 3. Episode of atrial fibrillation during recent hospitalization at [facility], that was new onset. a. Rate controlled. 4. History of hypertension. a. Pressure is still running low, but asymptomatic, and on no antihypertensives except low-dose of the Lopressor. 5. Coronary artery disease. a. Status post stents. b. Presently asymptomatic. 6. Status post implantable cardioverter-defibrillator placement. a. History of syncopal spell with sinus pause. 7. Chronic low back pain. 8. Depression and anxiety. a. Improved as of 04/29. PLAN: Continue PT and OT. Continue O2. His aspiration pneumonia has clinically resolved, but he remains with the hypoxemia. We will continue his neb treatment and continue his incentive spirometry. The patient said that he feels like he has plenty of adequate help at home and wants to plan on going home tomorrow. His family and his daughter are all good with this. He will be staying with family that will help take care of him. We will arrange for him to have O2 in home and also for home health to see him and to continue physical therapy in the home. Job ID: [id number] MTDD
[2020-04-29] MEDS: Niacin SR 500 MG CAP PO SCH (20:05)
[2020-04-29] MEDS: Tamsulosin HCl 0.4 MG CAP PO SCH (20:05)
[2020-04-29] MEDS: Melatonin 3 MG TAB PO PRN (20:06)
[2020-04-29] MEDS: Mirtazapine 15 MG TAB PO SCH (20:06)
[2020-04-29] MEDS: Gabapentin 300 MG CAP PO SCH (20:07)
[2020-04-29] MEDS: Latanoprost 0.005% Ophth Soln 2.5 ml Bottle EA EYE SCH (20:12)
[2020-04-29] MEDS: traMADol HCl 50 MG TAB PO PRN (20:53)
[2020-04-30 08:36] VITALS: BP 97/67; TEMP 97.5
[2020-04-30] MEDS: Metoprolol Tartrate 25 MG TAB PO SCH (08:44)
[2020-04-30] MEDS: Enoxaparin Sodium 40 MG/0.4 ML SYRINGE SC SCH (08:49)
[2020-04-30] MEDS: guaiFENesin ER 600 MG TAB PO SCH (08:50)
[2020-04-30] MEDS: Calcium Carbonate 600 MG + Vit D TAB PO SCH (08:50)
[2020-04-30] MEDS: Aspirin Chewable 81 MG TAB PO SCH (08:50)
[2020-04-30] MEDS: Atorvastatin Calcium 40 MG TAB PO SCH (08:50)
[2020-04-30] MEDS: Fish Oil 1,000 MG CAP PO SCH (08:50)
[2020-04-30] MEDS: Finasteride 5 MG TAB PO SCH (08:50)
[2020-04-30] MEDS: Nystatin 500,000 UNITS/5 ML UDCUP SSW SCH ×2 (08:50→12:24)
[2020-04-30] MEDS: Floranex Packet PO SCH (08:51)
[2020-04-30] MEDS: [UNRECOGNIZED DRUG - OTHER] PO SCH (08:51)
[2020-04-30] MEDS: OSTEO BI FLEX PO SCH (08:51)
[2020-04-30] MEDS: GARLIC PO SCH (08:51)
== END 2020-04-30 14:16 | disposition home health service (06) | DRG 947 ==
LOC: MADMS 17:01 → UNDOADMIN 17:01 → MADMS 18:05
PROVIDERS: ADMIT Family Medicine; ATTEND Family Medicine
DX: R53.81 Other malaise (principal); J69.0 Pneumonitis due to inhalation of food and vomit; J96.91 Respiratory failure, unspecified with hypoxia; R53.1 Weakness; I48.91 Unspecified atrial fibrillation; I10 Essential (primary) hypertension; I25.10 Atherosclerotic heart disease of native coronary artery without angina pectoris; E78.5 Hyperlipidemia, unspecified; G89.29 Other chronic pain; M54.5 Low back pain; M96.1 Postlaminectomy syndrome, not elsewhere classified; K21.9 Gastro-esophageal reflux disease without esophagitis; F32.9 Major depressive disorder, single episode, unspecified; F41.9 Anxiety disorder, unspecified; R60.0 Localized edema; Z96.651 Presence of right artificial knee joint; Z96.641 Presence of right artificial hip joint; Z90.49 Acquired absence of other specified parts of digestive tract; Z79.82 Long term (current) use of aspirin; Z95.5 Presence of coronary angioplasty implant and graft; Z95.810 Presence of automatic (implantable) cardiac defibrillator
CPT/HCPCS: 36415; 80048; 80053; 85025; 94640; J1650; J7512; J7620